=== PATIENT | female | born 2000 | race Caucasian/White ===

== ENCOUNTER → 2021-08-07 | Outpatient (CLI) | payer OTHER ==
--- NOTE | 2021-08-07 10:50 | RAD ---
EXAM: Left shoulder, 3 views; left knee, 3 views. HISTORY: Pain. Wrestling injury. COMPARISON: None. FINDINGS: Left shoulder: 3 views of the left shoulder are obtained. There is a suspected Hill-Sachs deformity o f the left humeral head, of uncertain chronicity. There is no dislocation or subluxation. Left knee: 3 views of the left knee are obtained. There is no fracture, dislocation or subluxation. T here is trace joint fluid. IMPRESSION: 1. Hill-Sachs deformity of the left humeral head, uncertain chronicity. Correlate for prior shoulder dislocation. 2. Trace left knee effusion. Electronically signed by: Debora Juarez MD (08/07/2021 10:48 AM) [id number]
== END ==
LOC: RAD 09:42
PROVIDERS: ATTEND Nurse Practitioner Family
DX: M21.822 Other specified acquired deformities of left upper arm (principal); M25.512 Pain in left shoulder; M25.562 Pain in left knee
CPT/HCPCS: 73030; 73562